=== PATIENT | male | born 2000 | race Hispanic/Latino ===

== ENCOUNTER 2020-08-02 09:14 | Emergency (ER) | payer SELFPAY ==
--- OUTSIDE RECORDS SUMMARY | 2020-08-02 09:17 | XMS REPORT | Continuity of Care Document ---
:2000 Author Organization [facility] t Address [address] [place] [address] [place] [id number] Care Team Providers Name Role Phone Unavailable Unavailable Unavailable Problems This patient has no known problems. Allergies, Adverse Reactions, Alerts This patient has no known allergies or adverse reactions. Medications This patient has no known medications. Procedures This patient has no known procedures. Results This patient has no known results.
--- NOTE | 2020-08-02 09:58 | ER ---
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 Pt denies any symptoms. 09:20 Coronavirus screen: At this time, the client does not indicate any symptoms associated aa5 with coronavirus-19. Ebola Screen: Patient negative for fever greater than or equal to 101.5 degrees Fahrenheit, and additional compatible Ebola Virus Disease symptoms. Initial Sepsis Screen: Does the patient meet any 2 criteria? No. Patient's initial sepsis screen is negative. Does the patient have a suspected source of infection? No. Patient's initial sepsis screen is negative. Risk Assessment: Do you want to hurt yourself or someone else? Patient reports no desire to harm self or others. Onset of symptoms is unknown. 09:20 Acuity: DANDRE 4 aa5 09:20 Method Of Arrival: Ambulatory aa5 Triage Assessment: 09:30 General: Appears in no apparent distress. comfortable, Behavior is calm, cooperative, bp appropriate for age. Pain: Denies pain. EENT: No deficits noted. Neuro: No deficits noted. Cardiovascular: No deficits noted. Respiratory: No deficits noted. GI: No signs and/or symptoms were reported involving the gastrointestinal system. : No signs and/or symptoms were reported regarding the genitourinary system. Derm: No deficits noted. Musculoskeletal: No deficits noted. Historical: - Allergies: 09:20 No Known Allergies; aa5 - PMHx: 09:20 None; aa5 - PSHx: 09:20 Knee surgery; aa5 - Immunization history:: Adult Immunizations unknown. - Social history:: Smoking status: Reported history of juuling and/or vaping. Screenin:42 Abuse screen: Denies threats or abuse. Denies injuries from another. Nutritional bp screening: No deficits noted. Tuberculosis screening: No symptoms or risk factors identified. Fall Risk None identified. Assessment: 09:30 General: SEE TRIAGE NOTE. bp 10:09 Reassessment: PT D/C HOME AMBULATORY, DX WITH R/O COVID. bp Vital Signs: 09:20 BP 128 / 90; Pulse 78; Resp 16 S; Temp 98.2(O); Pulse Ox 98% on R/A; Weight 102.06 kg aa5 (R); Height 5 ft. 2 in. (157.48 cm) (R); Pain 0/10; 09:20 Body Mass Index 41.15 (102.06 kg, 157.48 cm) aa5 ED Course: 09:16 Patient arrived in ED. as 09:20 Bryant Timmons NP is PHCP. pm1 09:20 Sudeep Sethi MD is Attending Physician. pm1 09:20 Arm band placed on Patient placed in an exam room, on a stretcher. aa5 09:26 Triage completed. aa5 09:40 Isrrael Crockett, KEMAR is Primary Nurse. bp 09:42 Patient has correct armband on for positive identification. Bed in low position. Call bp light in reach. Side rails up X2. 10:09 No provider procedures requiring assistance completed. Patient did not have IV access bp during this emergency room visit. Administered Medications: No medications were administered Outcome: 09:58 Discharge ordered by . pm1 10:09 Discharged to home ambulatory. bp 10:09 Condition: stable 10:09 Discharge instructions given to patient, Instructed on discharge instructions, follow up and referral plans. Demonstrated understanding of instructions, follow-up care. 10:10 Patient left the ED. bp Addendum: 08/07/2020 07:20 Addendum: COVID-19 Result: Positive result giiven to ED physician to notify pt. a a5 Physician: Sudeep Sethi MD Physician was able to contact pt and pt was notified of positive COVID-19 swab result. Physician answered pt questions. Signatures: Milagros Seth Audri, RN RN aa5 Bryant Timmons, OSMAN HAND SIZER pm1 Isrrael Crockett, KEMAR RN bp
--- NOTE | 2020-08-02 09:58 | EDPHYS ---
Physician Documentation [facility] Name: Bolivar Cristobal Age: 19 yrs Sex: Male : 2000 Arrival Date: 08/02/2020 Time: 09:16 Bed 8 Private MD: ED Physician Sudeep Sethi HPI: 08/02 09:53 This 19 yrs old Male presents to ER via Ambulatory with complaints of r/o pm1 covid. 09:53 Patient is here for a covid test because two of his coworkers have symptoms and 1 pm1 tested positive. The patient does not have any symptoms. He wants a test so he can return to work just in case they request it from him. Associated signs and symptoms: The patient has no apparent associated signs or symptoms. The patient has not experienced similar symptoms in the past. The patient has not recently seen a physician. Historical: - Allergies: 09:20 No Known Allergies; aa5 - PMHx: 09:20 None; aa5 - PSHx: 09:20 Knee surgery; aa5 - Immunization history:: Adult Immunizations unknown. - Social history:: Smoking status: Reported history of juuling and/or vaping. ROS: 09:53 Constitutional: Negative for fever, chills, and weight loss, Eyes: Negative for injury, pm1 pain, redness, and discharge, ENT: Negative for injury, pain, and discharge, Cardiovascular: Negative for chest pain, palpitations, and edema, Respiratory: Negative for shortness of breath, cough, wheezing, and pleuritic chest pain, Abdomen/GI: Negative for abdominal pain, nausea, vomiting, diarrhea, and constipation, Back: Negative for injury and pain, MS/Extremity: Negative for injury and deformity, Skin: Negative for injury, rash, and discoloration, Neuro: Negative for headache, weakness, numbness, tingling, and seizure. Exam: 09:53 Constitutional: This is a well developed, well nourished patient who is awake, alert, pm1 and in no acute distress. Head/Face: Normocephalic, atraumatic. 09:53 Skin: Warm, dry with normal turgor. Normal color with no rashes, no lesions, and no evidence of cellulitis. MS/ Extremity: Pulses equal, no cyanosis. Neurovascular intact. Full, normal range of motion. 09:53 Cardiovascular: Exam negative for acute changes, Rate: normal, Rhythm: regular, Pulses: no pulse deficits are appreciated. 09:53 Respiratory: Exam negative for acute changes, respiratory distress, shortness of breath. 09:53 Neuro: Exam negative for acute changes, Orientation: is normal, Mentation: is normal, Motor: is normal, Gait: is steady, at a normal pace, without difficulty. Vital Signs: 09:20 BP 128 / 90; Pulse 78; Resp 16 S; Temp 98.2(O); Pulse Ox 98% on R/A; Weight 102.06 kg aa5 (R); Height 5 ft. 2 in. (157.48 cm) (R); Pain 0/10; 09:20 Body Mass Index 41.15 (102.06 kg, 157.48 cm) aa5 MDM: 09:21 Patient medically screened. pm1 09:53 Data reviewed: vital signs. Data interpreted: Pulse oximetry: on room air is 98 %. pm1 Interpretation: normal. 09:57 Counseling: I had a detailed discussion with the patient and/or guardian regarding: the pm1 historical points, exam findings, and any diagnostic results supporting the discharge/admit diagnosis, the need for outpatient follow up, to return to the emergency department if symptoms worsen or persist or if there are any questions or concerns that arise at home, pending covid results. 03 09:52 Order name: COVID-19 : Document "Date of Symptom Onset" if Symptomatic. pm1 Administered Medications: No medications were administered Disposition: 08/03 09:04 Co-signature as Attending Physician, Sudeep Sethi MD I agree with the assessment and giovani plan of care. Disposition: 08/02/20 09:58 Discharged to Home. Impression: Encounter for screening for other viral diseases, Person with feared health complaint in whom no diagnosis is made. - Condition is Stable. - Discharge Instructions: COVID-19. - Work release form, Medication Reconciliation Form, Thank You Letter, Antibiotic Education, Prescription Opioid Use form. - Follow up: Emergency Department; When: As needed; Reason: Worsening of condition. Follow up: Private Physician; When: 2 - 3 days; Reason: Recheck today's complaints, Continuance of care, Re-evaluation by your physician. - Problem is new. - Symptoms are unchanged. Signatures: Dispatcher [employer] EDMS Sudeep Sethi MD MD cha Calderon, Audri, RN RN aa5 Bryant Timmons, MULTIMEDIA AUTHORING SPECIALIST MULTIMEDIA AUTHORING SPECIALIST pm1 Isrrael Crockett, RN RN bp Corrections: (The following items were deleted from the chart) 03 09:58 09:58 08/02/2020 09:58 Discharged to Home. Impression: Person with feared health pm1 complaint in whom no diagnosis is made. Condition is Stable. Forms are Medication Reconciliation Form, Thank You Letter, Antibiotic Education, Prescription Opioid Use. Follow up: Emergency Department; When: As needed; Reason: Worsening of condition. Follow up: Private Physician; When: 2 - 3 days; Reason: Recheck today's complaints, Continuance of care, Re-evaluation by your physician. Problem is new. Symptoms are unchanged. pm1 10:10 09:58 08/02/2020 09:58 Discharged to Home. Impression: Encounter for screening for bp other viral diseasesPerson with feared health complaint in whom no diagnosis is made. Condition is Stable. Forms are Medication Reconciliation Form, Thank You Letter, Antibiotic Education, Prescription Opioid Use. Follow up: Emergency Department; When: As needed; Reason: Worsening of condition. Follow up: Private Physician; When: 2 - 3 days; Reason: Recheck today's complaints, Continuance of care, Re-evaluation by your physician. Problem is new. Symptoms are unchanged. pm1
[2020-08-02 10:14] VITALS: BP 128/90; TEMP 98.2; O2SAT 98
== END 2020-08-02 10:10 | disposition home or self-care (01) ==
LOC: ER 09:14
DX: Z20.822 Contact with and (suspected) exposure to COVID-19 (principal)
CPT/HCPCS: 99281; U0002